=== PATIENT | male | born 1980 | race African-American/Black ===

== ENCOUNTER 2022-09-22 17:48 | Emergency (ER) | payer BC ==
[~2022-09-22] VITALS: Ht 177.8 cm; Wt 72.6 kg
[2022-09-22 18:43] VITALS: BP_SYST 121
--- NOTE | 2022-09-22 18:48 | NUR ---
Patient triaged and placed in waiting room. VSS and patient appears in no acute distress at this time. Accompanied by self, awaiting available bed, and MD notified of need for MSE.
--- NOTE | 2022-09-22 20:10 | NUR ---
Patient ambulatory to bed [facility] for evaluation and treatment
--- NOTE | 2022-09-22 20:10 | NUR ---
Pt report received. 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 No active bleeding noted.
--- NOTE | 2022-09-22 20:16 | NUR ---
PT WOUND IRRIGATED WITH 70 CC STERILE SALINE AND COVERED UP WITH GAUZE TO BE EVALUATED BY
[2022-09-22] MEDS ORDERED: IBUPROFEN 800 MG TABLET PO ONE (20:45)
[2022-09-22] MEDS ORDERED: LIDOCAINE 1% 10 MG/ML, 20 ML MDV INJ ONE (20:45)
[2022-09-22] MEDS ORDERED: DIPHTH,PERTUSS(ACELL),TET VAC 0.5 ML VIAL (Tdap) I.M. ONE (20:45)
--- NOTE | 2022-09-22 20:47 | NUR ---
Dr. Hopkins at bedside to perform lac repair.
--- NOTE | 2022-09-22 21:00 | NUR ---
Lac to Left index finger well approximated with [address] Hopkins. Tolerated procedure well.
[2022-09-22] MEDS ORDERED: BACITRACIN 1 GM OINT TP ONE (21:09)
--- NOTE | 2022-09-22 21:15 | NUR ---
Wound cleaned with NS, bacitracin applied, covered with non-adherent dsg, secured with gauze dsg.
[2022-09-22 21:30] VITALS: BP_SYST 122
--- NOTE | 2022-09-22 21:30 | NUR ---
Patient given written and verbal discharge instructions and verbalizes understanding. ER MD discussed with patient the results and treatment provided. Patient in stable condition. ID arm band removed. No Rx given. Patient educated on pain management and to follow up with PMD. Pain Scale 2/10. Opportunity for questions provided and answered. Medication side effect fact sheet provided.
== END 2022-09-22 21:30 | disposition home or self-care (01) ==
LOC: SED 17:48
DX: S61.211A Laceration without foreign body of left index finger without damage to nail, initial encounter (principal); Z79.899 Other long term (current) drug therapy; W23.1XXA Caught, crushed, jammed, or pinched between stationary objects, initial encounter; Y93.89 Activity, other specified; Y92.89 Other specified places as the place of occurrence of the external cause; Y99.8 Other external cause status
CPT/HCPCS: 99283; 90715; 90471; 12001; J2001

== ENCOUNTER 2023-08-30 20:03 | Emergency (ER) | payer BC ==
[~2023-08-30] VITALS: Ht 177.8 cm; Wt 81.6 kg
[2023-08-30 20:12] VITALS: BP_SYST 135; PULSE 80; RESP 18; TEMP 98; O2SAT 99
[2023-08-30] MEDS ORDERED: LIDOCAINE 1% 10 MG/ML, 20 ML MDV INJ ONE (20:15)
[2023-08-30] MEDS ORDERED: BACITRACIN 1 GM OINT TP ONE (20:25)
== END 2023-08-30 20:26 | disposition home or self-care (01) ==
LOC: SED 20:03
DX: S61.217A Laceration without foreign body of left little finger without damage to nail, initial encounter (principal); W26.0XXA Contact with knife, initial encounter; Y93.89 Activity, other specified; Y92.89 Other specified places as the place of occurrence of the external cause; Y99.8 Other external cause status
CPT/HCPCS: 99282